=== PATIENT | male | born 1935 | race American Indian/Alaskan Native ===

== ENCOUNTER 2020-09-13 15:32 | Emergency (ER) | payer MEDICARE, OTHER ==
[2020-09-13 15:48] VITALS: BP 122/63
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
== END 2020-09-13 17:06 | disposition home or self-care (01) ==
LOC: ED 15:32
DX: M54.5 Low back pain (principal); M25.512 Pain in left shoulder; M25.562 Pain in left knee; F03.90 Unspecified dementia, unspecified severity, without behavioral disturbance, psychotic disturbance, mood disturbance, and anxiety; M19.90 Unspecified osteoarthritis, unspecified site; Z87.891 Personal history of nicotine dependence; V49.59XA Passenger injured in collision with other motor vehicles in traffic accident, initial encounter; Y92.410 Unspecified street and highway as the place of occurrence of the external cause; Y93.89 Activity, other specified; Y99.8 Other external cause status
CPT/HCPCS: 99283